=== PATIENT | female | born 1985 | race Caucasian/White ===

== ENCOUNTER 2017-06-05 11:23 | Emergency (ER) | payer BC ==
[~2017-06-05] VITALS: Ht 182.9 cm; Wt 90.7 kg
[~2017-06-05 11:23] MED LIST: ALBU90OI INH; ANTIDEPRESSANT; AZIT250 PO; BUPR100ER PO; BUPR75 PO; CEPH500 PO; CIPR500 PO; CITA20 PO; CODGUAEL PO; CYCL10 PO; Esgic Tablet1 EACH PO; HYDACE5 PO; IBUP600 PO; METCAR750 PO; METO10 PO; NAPR500 PO; NEOPOLHCSU OT; NITR100CA PO; Norco 10-325 T1 EACH PO; PHENA200 PO; PRED20 PO; PROM25 PO; Phenergan Vc-C120 ML PO
[2017-06-05] MEDS ORDERED: LORA1SY (11:59)
[2017-06-05] MEDS ORDERED: IBUP600 PO (12:00)
[2017-06-05 12:16] LABS: BASOPHILS ABSOLUTE AUTO 0.05 K/mm3 (0.00-0.23); BASOPHILS PERCENT AUTO 1 % (0-2); EOSINOPHILS ABSOLUTE AUTO 0.02 K/mm3 (0.00-0.68); EOSINOPHILS PERCENT AUTO 0 % (0-6); Hematocrit 44.2 % (33.0-51.0); Hemoglobin 14.5 g/dL (11.5-16.0); IMMATURE GRAN ABSOLUTE AUTO 0.02 K/mm3 (0.00-0.10); IMMATURE GRAN PERCENT AUTO 0 % (0-1); LYMPHOCYTES ABSOLUTE AUTO 1.35 K/mm3 (0.84-5.20); LYMPHOCYTES PERCENT AUTO 15 % (21-46); MONOCYTES ABSOLUTE AUTO 0.68 K/mm3 (0.16-1.47); MONOCYTES PERCENT AUTO 7 % (4-13); Mean Corpuscular HGB 30.6 pg (26.0-34.0); Mean Corpuscular HGB Conc 32.8 g/dL (31.5-36.5); Mean Corpuscular Volume 93 fL (80-100); Mean Platelet Volume 10.1 fL (9.1-12.4); NEUTROPHILS ABSOLUTE AUTO 7.01 K/mm3 (1.96-9.15); NEUTROPHILS PERCENT AUTO 77 % (41-73); Platelet Count 276 K/mm3 (150-400); RDW Standard Deviation 41.8 fL (35.1-46.3); Red Blood Cell Count 4.74 M/mm3 (3.80-5.20); White Blood Cell Count 9.13 K/mm3 (4.00-11.30)
[2017-06-05 12:35] LABS: Alanine Aminotransfer (ALT/SGP 23 U/L (12-78); Albumin, Blood 4.3 g/dL (3.4-5.0); Albumin/Globulin Ratio 1.1 (0.8-1.8); Alk Phos 56 U/L (50-136); Anion Gap 7 mmol/L (6-16); Aspartate Aminotrans (AST/SGOT 35 U/L (12-37); Bilirubin, Total 0.9 mg/dL (0.1-1.0); Blood Urea Nitrogen 10 mg/dL (8-24); Bun/Creatinine Ratio 11.4 (12.0-20.0); CO2, Blood 27 mmol/L (21-32); Calcium, Blood 9.1 mg/dL (8.5-10.1); Chloride, Blood 103 mmol/L (98-108); Creatinine, Blood 0.88 mg/dL (0.40-1.00); Globulin, Blood 3.9 g/dL (2.2-4.0); Glomerular Filtration Rate >60 (60-); Glucose, Blood 89 mg/dL (70-99); Potassium, Blood 3.9 mmol/L (3.5-5.5); Sodium, Blood 137 mmol/L (136-145); Total Protein, Blood 8.2 g/dL (6.4-8.2)
[2017-06-05] MEDS ORDERED: Zofran Odt4 MG SL (14:02)
[2017-06-05] MEDS ORDERED: HYDR1TAB94 PO (14:02)
== END 2017-06-05 14:36 | disposition home or self-care (01) ==
LOC: ER 11:23
PROVIDERS: Physician Assistant
DX: R10.12 Left upper quadrant pain (principal); R10.11 Right upper quadrant pain; Z88.1 Allergy status to other antibiotic agents; Z88.2 Allergy status to sulfonamides; Z91.040 Latex allergy status; Z79.899 Other long term (current) drug therapy; Z98.890 Other specified postprocedural states
CPT/HCPCS: 36415; 80053; 83690; 85025; C9113; J1885; J2405; J2550; J7030

== ENCOUNTER 2018-06-02 23:34 | Emergency (ER) | payer BC ==
[~2018-06-02] VITALS: Ht 182.9 cm; Wt 94.8 kg
[~2018-06-02 23:34] MED LIST changes: +HYDR1TAB94 PO; +LORA1SY; +Zofran Odt4 MG SL
[2018-06-03] MEDS ORDERED: SUMA25 PO (00:13)
[2018-06-03] MEDS ORDERED: TRAZ50 PO (00:13)
[2018-06-03 00:20] LABS: BASOPHILS ABSOLUTE AUTO 0.07 K/mm3 (0.00-0.23); BASOPHILS PERCENT AUTO 1 % (0-2); EOSINOPHILS ABSOLUTE AUTO 0.21 K/mm3 (0.00-0.68); EOSINOPHILS PERCENT AUTO 3 % (0-6); Hematocrit 44.3 % (33.0-51.0); Hemoglobin 14.2 g/dL (11.5-16.0); IMMATURE GRAN ABSOLUTE AUTO 0.02 K/mm3 (0.00-0.10); IMMATURE GRAN PERCENT AUTO 0 % (0-1); LYMPHOCYTES ABSOLUTE AUTO 2.97 K/mm3 (0.84-5.20); LYMPHOCYTES PERCENT AUTO 35 % (21-46); MONOCYTES ABSOLUTE AUTO 0.99 K/mm3 (0.16-1.47); MONOCYTES PERCENT AUTO 12 % (4-13); Mean Corpuscular HGB 31.5 pg (26.0-34.0); Mean Corpuscular HGB Conc 32.1 g/dL (31.5-36.5); Mean Corpuscular Volume 98 fL (80-100); Mean Platelet Volume 10.7 fL (9.1-12.4); NEUTROPHILS ABSOLUTE AUTO 4.26 K/mm3 (1.96-9.15); NEUTROPHILS PERCENT AUTO 50 % (41-73); Platelet Count 270 K/mm3 (150-400); RDW Coefficient Variation 12.2 % (11.7-14.2); RDW Standard Deviation 44.2 fL (35.1-46.3); Red Blood Cell Count 4.51 M/mm3 (3.80-5.20); White Blood Cell Count 8.52 K/mm3 (4.00-11.30)
[2018-06-03 00:42] LABS: Alanine Aminotransfer (ALT/SGP 17 U/L (12-78); Albumin, Blood 4.1 g/dL (3.4-5.0); Albumin/Globulin Ratio 1.2 (0.8-1.8); Alk Phos 98 U/L (50-136); Anion Gap 6 mmol/L (6-16); Aspartate Aminotrans (AST/SGOT 22 U/L (12-37); Bilirubin, Total 0.2 mg/dL (0.1-1.0); Blood Urea Nitrogen 15 mg/dL (8-24); Bun/Creatinine Ratio 19.7 (12.0-20.0); CO2, Blood 26 mmol/L (21-32); Calcium, Blood 8.4 mg/dL (8.5-10.1); Chloride, Blood 108 mmol/L (98-108); Creatinine, Blood 0.76 mg/dL (0.40-1.00); Globulin, Blood 3.4 g/dL (2.2-4.0); Glomerular Filtration Rate >60 (60-); Glucose, Blood 84 mg/dL (70-99); Potassium, Blood 3.7 mmol/L (3.5-5.5); Sodium, Blood 140 mmol/L (136-145); Total Protein, Blood 7.5 g/dL (6.4-8.2); Troponin I <0.015 ng/mL (0.000-0.040)
== END 2018-06-03 01:37 | disposition home or self-care (01) ==
LOC: ER 23:34
PROVIDERS: Emergency Medicine
DX: I49.3 Ventricular premature depolarization (principal); Z88.1 Allergy status to other antibiotic agents; Z91.040 Latex allergy status; Z88.2 Allergy status to sulfonamides; Z79.899 Other long term (current) drug therapy
CPT/HCPCS: 36415; 71046; 80053; 84443; 84484; 85025; 93005; 93010; 99285-25

== ENCOUNTER → 2018-09-29 | Outpatient (CLI) | payer BC ==
[~2018-09-29] MED LIST changes: +BENADRYL25 MG PO; -BUPR75 PO; +Budeprion Xl300 MG PO; +Imitrex100 MG PO; +Loratadine10 MG PO; +METPHE10 PO; +THERA1 EACH PO; +TRAZ50 PO
== END | disposition home or self-care (01) ==
LOC: LAB SHORT 10:34 → PLD 10:34
DX: D22.5 Melanocytic nevi of trunk (principal)
CPT/HCPCS: 88305

== ENCOUNTER 2020-05-04 14:59 | Emergency (ER) | payer BC ==
[~2020-05-04] VITALS: Ht 182.9 cm; Wt 93.0 kg
[2020-05-04 15:41] LABS: BASOPHILS ABSOLUTE AUTO 0.06 K/mm3 (0.00-0.23); BASOPHILS PERCENT AUTO 1 % (0-2); EOSINOPHILS ABSOLUTE AUTO 0.09 K/mm3 (0.00-0.68); EOSINOPHILS PERCENT AUTO 1 % (0-6); Hematocrit 43.3 % (33.0-51.0); Hemoglobin 14.5 g/dL (11.5-16.0); IMMATURE GRAN ABSOLUTE AUTO 0.01 K/mm3 (0.00-0.10); IMMATURE GRAN PERCENT AUTO 0 % (0-1); LYMPHOCYTES ABSOLUTE AUTO 2.22 K/mm3 (0.84-5.20); LYMPHOCYTES PERCENT AUTO 32 % (21-46); MONOCYTES ABSOLUTE AUTO 0.67 K/mm3 (0.16-1.47); MONOCYTES PERCENT AUTO 10 % (4-13); Mean Corpuscular HGB 31.3 pg (26.0-34.0); Mean Corpuscular HGB Conc 33.5 g/dL (31.5-36.5); Mean Corpuscular Volume 93 fL (80-100); Mean Platelet Volume 10.6 fL (9.1-12.4); NEUTROPHILS ABSOLUTE AUTO 3.92 K/mm3 (1.96-9.15); NEUTROPHILS PERCENT AUTO 56 % (41-73); Platelet Count 251 K/mm3 (150-400); RDW Coefficient Variation 12.2 % (11.7-14.2); RDW Standard Deviation 42.5 fL (35.1-46.3); Red Blood Cell Count 4.64 M/mm3 (3.80-5.20); White Blood Cell Count 6.97 K/mm3 (4.00-11.30)
[2020-05-04 15:57] LABS: Alanine Aminotransfer (ALT/SGP 16 U/L (12-78); Albumin, Blood 4.2 g/dL (3.4-5.0); Albumin/Globulin Ratio 1.1 (0.8-1.8); Alk Phos 67 U/L (50-136); Anion Gap 5 mmol/L (6-16); Aspartate Aminotrans (AST/SGOT 20 U/L (12-37); Bilirubin, Total 0.6 mg/dL (0.1-1.0); Blood Urea Nitrogen 14 mg/dL (8-24); Bun/Creatinine Ratio 15.4 (12.0-20.0); CO2, Blood 29 mmol/L (21-32); Calcium, Blood 9.6 mg/dL (8.5-10.1); Chloride, Blood 106 mmol/L (98-108); Creatinine, Blood 0.91 mg/dL (0.40-1.00); Globulin, Blood 3.7 g/dL (2.2-4.0); Glomerular Filtration Rate >60 (60-); Glucose, Blood 101 mg/dL (70-99); Potassium, Blood 3.2 mmol/L (3.5-5.5); Sodium, Blood 140 mmol/L (136-145); Total Protein, Blood 7.9 g/dL (6.4-8.2)
[2020-05-04 16:28] LABS: Source, Urine Clean Catch
[2020-05-04 16:35] LABS: Appearance, Urine Clear (Clear); Bilirubin, Urine Neg (Neg); Blood, Urine 1+ (Neg); Color, Urine Yellow (P-Yellow); Glucose Qualitative, Urine Neg (Neg); Ketones, Urine Neg (Neg); Leukocyte Esterase, Urine Neg (Neg); Nitrite, Urine Neg (Neg); Protein, Urine Neg (Neg); Urobilinogen, Urine NORM (Normal); pH, Urine 6.5 (5.0-8.0)
[2020-05-04 16:45] LABS: Bacteria Few /hpf; Red Blood Cells, Urine Rare /hpf (0-2); Squamous Epithelial Cells Few /hpf (Few); White Blood Cells, Urine Not Seen /hpf (0-5)
[2020-08-15] MEDS ORDERED: ATEN25 (11:40)
[2020-08-15] MEDS ORDERED: ATOM40 (11:40)
== END 2020-05-04 16:59 | disposition home or self-care (01) ==
LOC: ER 14:59
PROVIDERS: Physician Assistant
DX: E87.6 Hypokalemia (principal); R00.2 Palpitations; Z91.041 Radiographic dye allergy status; Z88.2 Allergy status to sulfonamides; Z88.1 Allergy status to other antibiotic agents; Z91.040 Latex allergy status; Z79.899 Other long term (current) drug therapy
CPT/HCPCS: 36415; 80053; 81001; 85025; 93005; 93010; 99285-25; A9270

== ENCOUNTER 2020-06-05 07:33 | Day surgery (SDC) | payer BC ==
[2020-08-15] MEDS ORDERED: ATEN25 (11:40)
[2020-08-15] MEDS ORDERED: ATOM40 (11:40)
== END 2020-06-05 23:41 | disposition home or self-care (01) ==
LOC: MOI US 07:33 → MOI MAM 08:00 → MOI US 08:00
DX: C50.912 Malignant neoplasm of unspecified site of left female breast (principal)
CPT/HCPCS: 19083; 77065; 88305; 88342; 88360; A4648

== ENCOUNTER 2020-08-23 13:38 | Day surgery (SDC) | payer BC ==
[~2020-08-23] VITALS: Ht 182.9 cm; Wt 93.0 kg
[~2020-08-23 13:38] MED LIST changes: +ATEN25; +ATOM40
--- NOTE | 2020-08-23 14:07 | NUR ---
08/23/20 1407 VERÓNICA MONSALVE HAS FACTOR 5
[2020-08-23] MEDS ORDERED: ATOM25 PO (14:26)
[2020-08-23] MEDS ORDERED: VITAMIN D5000 UNIT PO (14:30)
[2020-08-23] MEDS ORDERED: MELATONIN5 M1 PO (14:32)
[2020-08-23] MEDS ORDERED: GABA300 PO (14:33)
--- NOTE | 2020-08-23 17:02 | NUR ---
08/23/20 1702 [facility] 1543 MEDIPORT PLACEMENT CONFIRMED VIA RADIOLOGIST.
== END 2020-08-23 16:10 | disposition home or self-care (01) ==
LOC: ORSCSDS 13:38
PROVIDERS: Surgery
PROC: 05HM33Z Insertion of Infusion Device into Right Internal Jugular Vein, Percutaneous Approach (ICD-10-PCS; principal; 2020-08-23 15:00)
PROC: B543ZZA Ultrasonography of Right Jugular Veins, Guidance (ICD-10-PCS; principal; 2020-08-23 15:00)
DX: C50.812 Malignant neoplasm of overlapping sites of left female breast (principal); Z79.899 Other long term (current) drug therapy
CPT/HCPCS: 77001; A9270; C1788; J0690; J1642; J2250; J2704; J3010; J7120

== ENCOUNTER 2021-05-24 11:22 | Day surgery (SDC) | payer BC ==
[~2021-05-24 11:22] MED LIST changes: -ATEN25; +ATEN25 PO; +ATOM25 PO; +GABA300 PO; +MELATONIN5 M1 PO; +VITAMIN D5000 UNIT PO
--- NOTE | 2021-05-24 13:30 | NUR ---
05/24/21 1330 Gloria Bazan ABDOMINAL AREA PREPPED W/ DURAPREP BY SPIKE. VIANNEY AREA PREPPED W/ CHLORAHEXADINE BY MACRIE. BUPIVACAINE 0.5% 30 MLS MIXED W/ EPI 0.15 ML PER ORDER TO MAKE BUPIVACAINE 0.5% 1:200,000 FOR INJECTION AT INCISION SITE BY DR QUINN. 10 MLS INJECTED.
--- NOTE | 2021-05-24 15:15 | NUR ---
05/24/21 1515 GABO CHINCHILLA LATE ENTRY: PT CAME INTO PACU MAKING SOUNDS OF DIFFICULTY BREATHING DESPITE 02 SATS BEING 96%. PT BREATHING CONT TO BE LABORED WITH STRIDOR. DR ARREOLA AT BEDSIDE GAVE BENEDRYL AND ORDERED A DUONEB WHICH I GAVE. PT CONTINUED TO STRUGGLE TO BREATH/ SATS AND VITALS REMAINED STABLE OXYGEN WAS GIVEN WITH DUONEB AND TWO SEPARATE DOSES OF RACEPINEPHRINE INHALATION SOLUTION W/ NORMAL SALINE.. DR QUINN AND DR MCDONALD HAVE BOTH EVALUATED PT. ORDERS TO KEEP PT AND OBSERVE FOR TWO HOURS BEFORE MOVING PT TO PCU 10 OVERNIGHT FOR OBSERVATION.
--- NOTE | 2021-05-24 15:44 | NUR ---
05/24/21 1544 GABO CHINCHILLA 05/24/21 1515 GABO CHINCHILLA LATE ENTRY: PT CAME INTO PACU MAKING SOUNDS OF DIFFICULTY BREATHING DESPITE 02 SATS BEING 96%. PT BREATHING CONT TO BE LABORED WITH STRIDOR. DR ARREOLA AT BEDSIDE GAVE BENEDRYL AND ORDERED A DUONEB WHICH I GAVE. PT CONTINUED TO STRUGGLE TO BREATH/ SATS AND VITALS REMAINED STABLE OXYGEN WAS GIVEN WITH DUONEB AND TWO SEPARATE DOSES OF RACEPINEPHRINE INHALATION SOLUTION W/ NORMAL SALINE.. DR QUINN AND DR MCDONALD HAVE BOTH EVALUATED PT. ORDERS TO KEEP PT AND
[2021-05-24] MEDS ORDERED: OMEP20ER PO (18:13)
[2021-05-24] MEDS ORDERED: CETI5 PO (18:35)
[2021-05-25] MEDS ORDERED: IBUP800 PO (12:18)
[2021-05-25] MEDS ORDERED: OXYC5 PO (12:18)
== END 2021-05-24 16:07 | disposition other institution (70) ==
LOC: ORSCSDS 11:22
PROVIDERS: Obstetrics & Gynecology
PROC: 0UT24ZZ Resection of Bilateral Ovaries, Percutaneous Endoscopic Approach (ICD-10-PCS; principal; 2021-05-24 13:00)
PROC: 0UB94ZX Excision of Uterus, Percutaneous Endoscopic Approach, Diagnostic (ICD-10-PCS; principal; 2021-05-24 13:00)
PROC: 0UT74ZZ Resection of Bilateral Fallopian Tubes, Percutaneous Endoscopic Approach (ICD-10-PCS; principal; 2021-05-24 13:00)
DX: C50.919 Malignant neoplasm of unspecified site of unspecified female breast (principal); N83.292 Other ovarian cyst, left side; N83.291 Other ovarian cyst, right side; N85.8 Other specified noninflammatory disorders of uterus; Z23 Encounter for immunization; K21.9 Gastro-esophageal reflux disease without esophagitis; E66.9 Obesity, unspecified; Z68.30 Body mass index [BMI] 30.0-30.9, adult; D68.51 Activated protein C resistance; Z79.899 Other long term (current) drug therapy
CPT/HCPCS: 71045; 88305; 90686; A9270; J0171; J1100; J1200; J1885; J2250; J2405; J2704; J3010

== ENCOUNTER 2021-05-24 16:54 | Observation (INO) | payer BC ==
[~2021-05-24] VITALS: Wt 103.1 kg
[2021-05-24] MEDS ORDERED: OMEP20ER PO (18:13)
[2021-05-24 18:17] LABS: Hematocrit 44.3 % (33.0-51.0); Hemoglobin 13.9 g/dL (11.5-16.0)
[2021-05-24] MEDS ORDERED: CETI5 PO (18:35)
--- NOTE | 2021-05-24 18:48 | NUR ---
SHIFT SUMMARY: DIRECT ADMIT FROM SURGERY CENTER. ALERT AND ORIENTED X4. NEURO WNL. PERRLA. DENIES NUMBNESS/TINGLING. ONE PERSON ASSIST TO BEDSIDE COMMODE. TELE SHOWING SINUS RHYTHM WITH HR 70-80'S. BP STABLE. POST OP VITALS IN PLACE. DENIES CHEST PAIN/PRESSURE. UPON ARRIVAL STRIDOR HEARD IN UPPER AIRWAY, PATIENT NOW SOUNDING CLEAR. BIPAP INITIALLY WORN FOR ONE HOUR WITH SETTINGS 6/4 AND 21% FIO2. BIPAP NOW ON STANDBY. ON ROOM AIR SATING HIGH 90'S. STATES HER BREATHING IS MUCH BETTER AND DOES NOT FEEL RESTRICTED. PATIENT IS NOT IN ANY DISTRESS AND BREATHING WNL. NO LABORED BREATHING NOTED. NO COUGH. SURGICAL SITE TO LOWER ABDOMEN. DRESSING C/D/I. COMPLAINS OF 5/10 PAIN UPON ARRIVAL, MOSTLY RELIEVED WITH FENTANYL. SEE EMAR FOR ADMIN. SLIGHTLY NAUSEAOUS. DR. BRAVO CALLED FOR REGLAN AND DIET ORDERS. PATIENT SWALLOWING SAFE AND DRINKING WATER AT THIS TIME. UP TO BSC X1 WITH STAFF. GOOD URINE OUTPUT AND MINIMAL VAGINAL BLEEDING. POST OP INSTRUCTIONS REVIEWED WITH PATIENT AND HANDOUT ON BEDSIDE TABLE. CONTINUOUS PULSE OX. AT BEDSIDE. LR INFUSING AT 75 ML/HR. WILL REPORT OFF TO ONCOMING RN.
[2021-05-24 19:13] LABS: Anion Gap 4 mmol/L (6-16); Blood Urea Nitrogen 11 mg/dL (8-24); Bun/Creatinine Ratio 14.4 (12.0-20.0); CO2, Blood 27 mmol/L (21-32); Calcium, Blood 9.4 mg/dL (8.5-10.1); Chloride, Blood 108 mmol/L (98-108); Creatinine, Blood 0.77 mg/dL (0.40-1.00); Glomerular Filtration Rate >60 (60-); Glucose, Blood 125 mg/dL (70-99); Potassium, Blood 4.1 mmol/L (3.5-5.5); Sodium, Blood 139 mmol/L (136-145)
--- NOTE | 2021-05-24 20:31 | NUR ---
CARE ASSUMPTION PT LYING IN BED IN NO DISTRESS. RESP ARE EVEN AND UNLABORED. LS ARE CLEAR T/O W O2 SATS >94% ON RM AIR. SX SITES ON ABDOMEN SHOW NO REDNESS OR SWELLING. PT DENYING ANY SIGNIFICANT PAIN OR NAUSEA. PT REPORTS FEELING LIKE SHE NEEDS TO COUGH SOMETHING UP BUT IS UNABLE, PT ABLE TO SWALLOW W NO ISSUES. VSS AND AFEBRILE. PT COMMUNICATIING APPROPRIATELY AND WHILE APPEARING VERY TIRED SHE IS ALERT. AXO X4. WCTM
--- NOTE | 2021-05-25 05:49 | NUR ---
SHIFT SUMMARY PT IS AXO X4 AND COMMUNICATES APPROPRIATELY. PT'S LS HAVE REMAINED CLEAR THIS SHIFT W O2 SATS >94% ON RM AIR. RESPIRATIONS HAVE BEEN EVEN AND UNLABORED. BP HAS REMAINED WNL AND STABLE. TELE SHOWING SR 60-70'S THIS SHIFT. PT'S OP SITES SHOW NO S/S OF REDNESS, SWELLING OR BLEEDING. PT'S MAIN COMPLAINT THIS SHIFT HAS BEEN PAIN IN HER NECK AND SHOULDERS. PT HAS HAD GOOD URINE OUTPUT WHILE TOLERATING PO INTAKE W NO NAUSEA OR VOMITTING. WILL REPORT TO ONCOMING RN.
--- NOTE | 2021-05-25 09:43 | NUR ---
CARE ASSUMPTION PATIET IS ALERT AND ORIENTED X4. PERRLA. NEURO IS INTACT. PATIENT LUNG SOUNDS CLEAR. SPO2 >90% ON RA. PATIENT REPORTS NO SHORTNESS OF BREATH OR CHEST PAIN/PRESSURE. PATIENT REPORTS NECK PAIN AND LEFT LOWER ABD PAIN. PATIENT RECEIVED PAIN MEDICATION PER EMAR. PATIENT WAS HAVING A HOT FLASH THIS AM AND PATIENT RECEIVED AN ICE PACK TO HELP COOL OFF. PATIENT IS INDEPENDENT WITH ADLS IN THE ROOM AND USES CALL LIGHT APPROPRIATELY. PATIENT HAS NO CONCERNS AT THIS TIME.THIS RN PROVIDED THERAPEUTIC COMMUNICATION AND ACTIVE LISTENING WHEN PATIENT WAS TALKING ABOUT HER FAMILY MEDICAL ISSUES. CALL LIGHT IS WITHIN REACH AND BED IN LOWEST POSITION.
--- NOTE | 2021-05-25 10:59 | NUR ---
Patient is lying in bed and alert. Patient talks about the events that led to her stay in the PCU and about the surgery that proceeded it. She then talks at length about the spiritual/emotional aspects of her journey with family deaths, her garces with cancer and her sister's garces with cancer. She also shares about the amazing support she has had, the lessons learned and even the events and people that came into her life at olson moments when she needed it the most. Pt is an incredible person with strong reslience, unstoppable hope and depth of character. She has refused to waste the suffering and struggle but is using it all to move forward and overcome. I reinforce helpful attitudes and practices, normalize her tendencies to take on guilt and provide gentle encouragement and prayer. Patient responds well and shows signs of increased peace and well-being. I will continue to remain available to patient and family.
[2021-05-25] MEDS ORDERED: OXYC5 PO (12:18)
[2021-05-25] MEDS ORDERED: IBUP800 PO (12:18)
--- NOTE | 2021-05-25 12:44 | NUR ---
DISCHARGE INSTRUCTIONS THIS RN WENT OVER THE DISCHARGE INSTRUCTIONS WITH THE PATIENT. THIS RN WENT OVER THE TWO NEW MEDICATIONS THE PATIENT IS TAKING AND THE SIGNIFICANCE OF THEM. THIS RN HAD THE PATIENT VERABLIZE UNDERSTANDING AND USED THE TEACH BACK METHOD. THIS RN WENT OVER PHYSICAL LIMITATIONS AFTER SURGERY AND THE PATIENT VERABLIZED UNDERSTANDING AND REPEATED THEM. THIS RN WENT OVER FOLLOW UP APPOINTMENTS AND WHICH ONES STILL NEEDED TO BE MADE. PATIENT IV REMOVED. WILL CONTINUE TO MONITOR AND PROVIDE CARE UNTIL ARRIVES TO TAKE HER HOME.
--- NOTE | 2021-05-25 14:00 | NUR ---
DISCHARGE PATIENT LEFT WITH [facility]IGHW[employer] ENGINEERING TECHNICIAN GABE AT 1300 TO MEET HER AT THEIR CAR. PATIENT HAD ALL BELONGINGS AND WASNT IN DISTRESS WHEN LEAVING.
== END 2021-05-25 13:18 | disposition home or self-care (01) ==
LOC: PCU 16:54
PROVIDERS: ADMIT Internal Medicine
DX: J95.821 Acute postprocedural respiratory failure (principal); F90.9 Attention-deficit hyperactivity disorder, unspecified type; F32.A Depression, unspecified; D68.51 Activated protein C resistance; K21.9 Gastro-esophageal reflux disease without esophagitis; Y83.8 Other surgical procedures as the cause of abnormal reaction of the patient, or of later complication, without mention of misadventure at the time of the procedure
CPT/HCPCS: 36415; 71045; 80048; 85014; 85018; 88305; 90686; 94660; 94760; 94762; 96374; 96375; 96376; A9270; G0378; J0171; J1100; J1200; J1885; J2250; J2405; J2704; J2765; J2930; J3010; J7120

== ENCOUNTER 2022-10-31 10:34 | Day surgery (SDC) | payer BC ==
[~2022-10-31] VITALS: Ht 182.9 cm; Wt 95.7 kg
[~2022-10-31 10:34] MED LIST changes: +CETI5 PO; +IBUP800 PO; +OMEP20ER PO; +OXYC5 PO
[2022-10-31] MEDS ORDERED: LEVOTHYROXINE112 M19 (10:54)
[2022-10-31] MEDS ORDERED: Adderall 20 MG20 MG (10:54)
[2022-10-31] MEDS ORDERED: Mobic15 MG (10:55)
[2022-10-31 13:36] VITALS: BP 109/70
== END 2022-10-31 13:38 | disposition home or self-care (01) ==
LOC: ORSCSDS 10:34
PROVIDERS: Surgery
PROC: 0DBL8ZX Excision of Transverse Colon, Via Natural or Artificial Opening Endoscopic, Diagnostic (ICD-10-PCS; principal; 2022-10-31 12:00)
DX: Z12.11 Encounter for screening for malignant neoplasm of colon (principal); Z80.0 Family history of malignant neoplasm of digestive organs; D12.3 Benign neoplasm of transverse colon; Z79.899 Other long term (current) drug therapy
CPT/HCPCS: 88305; J0461; J2001; J2250; J2405; J2704; J7120; Q9968